=== PATIENT | female | born 1945 | race Caucasian/White ===

== ENCOUNTER 2022-10-20 07:30 | Day surgery (SDC) | payer MEDICARE, OTHER ==
[2022-10-18 13:11] LABS: COVID AG,FIA SOURCE NASAL SWAB
[~2022-10-20] VITALS: Ht 177.8 cm; Wt 83.0 kg
[~2022-10-20 07:30] MED LIST: ACYC-138 PO; CALC0.2521 PO; CELE100 PO; CETI-450 PO; DOCU-385 PO; FLUO10CA24 PO; FLUT16SP NASAL; GABA-1201 PO; LEVO100 PO; MONT-35 PO; PANT-31 PO; SODIUM CHLORIDE 0.9% 1,000 ML ONE; TELM20 PO; XALA2.5OS OU
[2022-10-20] MEDS ORDERED: LIDOCAINE/PF 2% 5 ML VIAL IM ONE (07:31)
[2022-10-20] MEDS ORDERED: GLYCOPYRROLATE 0.2 MG/ML VIAL IM ONE (07:31)
[2022-10-20] MEDS ORDERED: EPHEDrine SULFATE 50 MG/ML VIAL IM ONE (07:31)
[2022-10-20] MEDS ORDERED: PROPOFOL 1% 20 ML VIAL IVP ONE (07:31)
[2022-10-20] MEDS ORDERED: SODIUM CHLORIDE 0.9% 1,000 ML IV ONE (08:00)
== END 2022-10-20 11:35 | disposition home or self-care (01) ==
LOC: SURGERY 07:30
PROVIDERS: ATTEND Specialist
DX: K62.5 Hemorrhage of anus and rectum (principal); K63.5 Polyp of colon; K57.30 Diverticulosis of large intestine without perforation or abscess without bleeding; I10 Essential (primary) hypertension; C50.919 Malignant neoplasm of unspecified site of unspecified female breast; K62.89 Other specified diseases of anus and rectum; Z20.822 Contact with and (suspected) exposure to COVID-19; Z79.899 Other long term (current) drug therapy; Z88.6 Allergy status to analgesic agent; E03.9 Hypothyroidism, unspecified; M19.90 Unspecified osteoarthritis, unspecified site; Z90.710 Acquired absence of both cervix and uterus; Z82.49 Family history of ischemic heart disease and other diseases of the circulatory system; Z80.6 Family history of leukemia; Z98.890 Other specified postprocedural states
CPT/HCPCS: 87426; 45380; 93005; C9803; C1769; J2704; J3490 ×3; J7030; 88305